=== PATIENT | male | born 1945 | race Caucasian/White ===

== ENCOUNTER 2023-04-18 09:51 | Emergency (ER) | payer MEDICARE ==
[2023-04-18] MEDS ORDERED: Sodium Chloride 0.9% 10 ML Syringe FLUSH PRN (10:06)
[2023-04-18 10:29] LABS: HEMOGLOBIN 14.6 g/dL (13.0-18.0); MEAN CORPUSCULAR HEMOGLOBIN 29.3 pg (27.0-32.0); RED BLOOD CELL COUNT 4.99 M/uL (4.50-6.50); RED CELL DISTRIBUTION WIDTH 13.4 % (11.0-16.0); WHITE BLOOD CELL COUNT,WBC 6.1 K/uL (4.0-11.0)
[2023-04-18 10:53] LABS: ANION GAP 11.3 mmol/L (5.0-15.0); BUN/CREATININE RATIO 13.7 (6-25); CALCIUM 8.9 mg/dL (8.5-10.1); CARBON DIOXIDE,CO2 30.1 mmol/L (21.0-32.0); CREATININE 1.83 mg/dL (0.70-1.30); EST CRCL DRUG DOSING (CG) 29.2 mL/min; MAGNESIUM 2.2 mg/dL (1.8-2.4); PHOSPHORUS 3.3 mg/dL (2.5-4.9); POTASSIUM,K 3.4 mmol/L (3.5-5.1); TROPONIN I HIGH SENSITIVITY 13.6 pg/ml (<=60.4)
[2023-04-18] MEDS: Potassium Chloride Riders 10 MEQ in Premix Bag 1 BAG IV ONE (12:51)
[2023-04-18] MEDS: Potassium Chloride Riders 50 ML ONE (13:01)
[2023-04-18 13:52] VITALS: BP 164/76; PULSE 55
== END 2023-04-18 15:52 | disposition home or self-care (01) ==
LOC: LB.ED 09:51
DX: R07.89 Other chest pain (principal); E78.00 Pure hypercholesterolemia, unspecified; I10 Essential (primary) hypertension; Z87.891 Personal history of nicotine dependence
CPT/HCPCS: 36415; 71045; 80048; 83735; 84100; 84484; 85027; 85379; 93005; 96365; 99285; J3480